=== PATIENT | male | born 1945 | race Caucasian/White ===

== ENCOUNTER 2018-04-25 21:20 | Emergency (ER) | payer MEDICARE, OTHER ==
[2018-04-25] MEDS ORDERED: BUFFERED LIDOCAINE 10 ML SYRINGE SUBQ STA (21:36)
--- NOTE | 2018-04-25 21:37 | ED Physician Documentation ---
PD HPI UPPER EXT INJURY - Stated complaint Stated Complaint: FINGER LAC - Chief complaint Chief Complaint: Laceration - History obtained from History obtained from: Patient - History of Present Illness Location: Left (This is a right-handed gentleman who accidentally cut his left index finger with a knife while prying something at home just prior to arrival. Tetanus is up-to-date.) Review of Systems Constitutional: reports: Reviewed and negative Throat: reports: Reviewed and negative Cardiac: reports: Reviewed and negative PD PAST MEDICAL HISTORY - Past Medical History Cardiovascular: None Respiratory: None Endocrine/Autoimmune: None GI: None : Other HEENT: None Psych: None Musculoskeletal: None - Past Surgical History General: Other - Present Medications Home Medications: Ambulatory Orders Medication Instructions Recorded Confirmed No Known Home Medications 03/12/13 04/25/18 - Allergies Allergies/Adverse Reactions: Allergies Allergy/AdvReac Type Severity Reaction Status Date / Time No Known Drug Allergies Allergy Verified 04/25/18 21:33 PD ED PE NORMAL - Vitals Vital signs reviewed: Yes - General General: Alert and oriented X 3, No acute distress - Extremities Extremities: Other (On the palmar side of the left index finger at the level of the middle phalanx there is a 1.5 cm transverse laceration without obvious neurovascular compromise. Tendon function will be addressed more formally after anesthetic. This will be documented under laceration repair.) - Neuro Neuro: Alert and oriented X 3, Normal speech Results - Vitals Vitals: Vital Signs - 24 hr 04/25/18 21:20 Temperature 36.8 C Heart Rate 81 Respiratory 16 Rate Blood Pressure 170/92 H O2 Saturation 96 Oxygen O2 Source Room air Procedures - Laceration (location) L 2nd finger Length in cm: 1.5 Wound type: Linear Neurovascular status: Sensory intact, Motor intact, Vascular intact Tendon involvement: Tendon intact. No: Tendon Injury Anesthesia: Lidocaine 1%, With bicarb Wound Preparation: Hibiclens, Irrigated copiously NS Skin layer closure: Nylon, Interrupted, Size #-0 - enter number (4-0), Sutures - enter # (5) Other: Tetanus UTD Complexity: Simple Departure - Departure Disposition: 01 Home, Self Care Clinical Impression: Laceration Condition: Good Record reviewed to determine appropriate education?: Yes Instructions: ED Laceration All Comments: Come back for any signs of infection which would include: Redness, swelling, drainage, increased pain, or fevers. Follow-up with your physician in 14 days for suture removal. Your blood pressure was elevated today on check into the emergency department. This does not mean that you have hypertension, it is a common phenomenon to come to the emergency department and have elevated blood pressure. I recommend that you see your primary care physician within the week to have it rechecked when you are feeling better.
[2018-04-25 22:00] VITALS: BP 140/82
== END 2018-04-25 22:06 | disposition home or self-care (01) ==
LOC: ED 21:20
DX: S61.211A Laceration without foreign body of left index finger without damage to nail, initial encounter (principal); W26.0XXA Contact with knife, initial encounter; Y92.009 Unspecified place in unspecified non-institutional (private) residence as the place of occurrence of the external cause; R03.0 Elevated blood-pressure reading, without diagnosis of hypertension
CPT/HCPCS: 12001; 99282; 99283

== ENCOUNTER 2020-01-25 09:08 | Outpatient (CLI) | payer MEDICARE, OTHER ==
[2020-01-25] MEDS ORDERED: GADOBUTROL 10 MMOL/10 ML VIAL ONE (09:38)
[2020-01-25] MEDS ORDERED: GADOBUTROL 10 MMOL/10 ML VIAL IVP ONE (10:21)
--- NOTE | 2020-01-25 10:56 | MRI Report ---
PROCEDURE: Brain W/WO INDICATIONS: INTERMITTENT EPISODES OF IMBALANCE/DROP ATTACKS CONTRAST: IV CONTRAST: Gadavist ml: 8 TECHNIQUE: Noncontrast axial T1 spin echo, axial T2 fast spin echo, sagittal and axial FLAIR, coronal T2 fast sp in echo, axial gradient echo, axial diffusion and ADC through the brain. After the administration of contrast, axial and coronal T1 spin echo with fat saturation through the brain. COMPARISON: None. FINDINGS: Image quality: Excellent. CSF spaces: Basal cisterns are patent. No extra-axial fluid collections. Ventricles are normal in size and shape. Brain: No midline shift. No intracranial bleeds or masses. No abnormal intracranial enhancement. There is cerebral volume loss for age and age-appropriate mild white matter changes. The brainstem ap pears normal. Diffusion-weighted images demonstrate no acute ischemic insults. No chronic ischemic insults. Normal intravascular flow voids are present. Skull and face: Calvarial marrow is normal in signal. Orbits appear normal. Sinuses: Sinuses and mastoids appear clear. IMPRESSION: 1. No MR evidence of acute process such as ischemia, mass, or hemorrhage. 2. Age-appropriate exam. 3. No suspicious enhancement. Reviewed by: Staci Stokes MD on 01/25/2020 9:54 AM DONNA Approved by: Staci Stokes MD on 01/25/2020 9:54 AM AKMARK Station ID: [id number]
== END 2020-01-25 09:09 | disposition home or self-care (01) ==
LOC: DI 09:08
PROVIDERS: ATTEND Family Medicine
DX: R26.89 Other abnormalities of gait and mobility (principal); R55 Syncope and collapse
CPT/HCPCS: 70553; A9585

== ENCOUNTER 2020-12-06 09:21 | Outpatient (CLI) | payer MEDICARE, OTHER ==
--- NOTE | 2020-12-06 12:03 | XRAY Report ---
PROCEDURE: Hip w/Pelvis 1V RT INDICATIONS: CHRONIC R HIP PX TECHNIQUE: AP pelvis with lateral view(s) of the right hip(s). COMPARISON: None. FINDINGS: Bones: No fractures or dislocations. Minor, asymmetric sclerosis of the right superior acetabulum a nd slight acetabular spurring. Joint spaces are maintained. Pelvic ring appears intact. No suspiciou s bony lesions. Incidental note made of partial sacralization on the right of the L5 transverse proc ess. Soft tissues: The visualized bowel gas pattern is normal. No suspicious soft tissue calcifications. Surgical clips of prostatectomy and surgical tacks of prior left hernia repair. IMPRESSION: 1. Mild, asymmetric right hip joint degeneration. 2. Prior surgical changes in the pelvic soft tissues. 3. Sacralization at the L5 transverse process on the right. Reviewed by: Staci Stokes MD on 12/06/2020 12:02 PM PDT Approved by: Staci Sotkes MD on 12/06/2020 12:02 PM PDT Station ID: [id number]
== END 2020-12-06 09:22 | disposition home or self-care (01) ==
LOC: DI.N 09:21
PROVIDERS: ATTEND Family Medicine
DX: M16.11 Unilateral primary osteoarthritis, right hip (principal); Q76.49 Other congenital malformations of spine, not associated with scoliosis

== ENCOUNTER 2022-04-11 07:30 | Outpatient (CLI) | payer MEDICARE, OTHER ==
--- NOTE | 2022-04-11 11:24 | CT Report ---
PROCEDURE: ABDOMEN/PELVIS WO INDICATIONS: FLANK PAIN TECHNIQUE: Noncontrast 5 mm thick sections acquired from the diaphragms to the symphysis. 5 mm coronal and sagi ttal reformats were then performed. For radiation dose reduction, the following was used: automated exposure control, adjustment of mA and/or kV according to patient size. COMPARISON: 03/01/2013 FINDINGS: Image quality: Excellent. ABDOMEN: Lung bases: Lung bases are clear. Heart size is enlarged. A tiny hiatal hernia. Kidneys: There are several calcifications stacked in the left lower pole calyx, the largest at the ba se measures about 0.8 cm. A few other 3 mm nonobstructing calcifications are present in other lower p ole calyces. 2 mm nonobstructing right upper and right mid pole calcifications are present. No perine phric inflammation. No hydronephrosis, hydroureter, or ureteral calcifications. A subcentimeter exoph ytic left upper pole renal cyst is present. There is a right lower pole cortical medullary cyst measu ring about 1.5 cm. No solid masses visible on this noncontrast scan. Solid organs: Small left lobe hepatic hypodensity, likely a small cyst or hemangioma. The liver is o therwise normal in contour and attenuation. Normal spleen size. Gallbladder normal. Pancreas is norm al in contours. No adrenal nodules. Peritoneum and bowel: Unenhanced bowel loops demonstrate normal wall thickness and caliber. Normal a ppendix. Decompressed stomach. No free fluid or air. Nodes and vessels: No retroperitoneal or mesenteric adenopathy by size criteria. Aorta and inferior vena cava are normal in caliber. Miscellaneous: Tiny fat-containing umbilical hernia. PELVIS: Genitourinary: Bladder wall thickness is normal. The prostate gland is surgically absent. Miscellaneous: No inguinal hernias or adenopathy. There are surgical tacks of prior left inguinal h ernia repair, likely incorporating mesh. Bones: Review hardening artifact from right hip arthroplasty partially obscures visualization of the pelvis. Degenerative disc change in the lumbar spine. Partial right sacroiliac joint ankylosis. No s uspicious bony lesions. No vertebral body compression fractures. IMPRESSION: 1. Bilateral nonobstructing renal calculi, left more numerous than right. 2. No evidence of obstructive uropathy. 3. Prior prostatectomy. Reviewed by: Staci Stokes MD on 04/11/2022 11:22 AM PST Approved by: Staci Stokes MD on 04/11/2022 11:22 AM PST Station ID: [id number]
== END 2022-04-11 07:31 | disposition home or self-care (01) ==
LOC: DI 07:30
PROVIDERS: ATTEND Urology
DX: C67.9 Malignant neoplasm of bladder, unspecified (principal); R10.9 Unspecified abdominal pain; N20.0 Calculus of kidney; Z90.79 Acquired absence of other genital organ(s)